=== PATIENT | female | born 1965 | race Caucasian/White ===

== ENCOUNTER → 2016-12-11 | Outpatient (CLI) | payer BC ==
[~2016-12-11] MED LIST: ALBUTEROL2.5 MG/3 M IH; ALLEGRA30 MG PO; AMITRIPTYLINE H50 MG PO; ATIVAN; ATIVAN0.5 MG PO; ATIVAN1 MG PO; AUGMENTIN875 MG PO; BACTRIM,SEPT1 TABLET PO; BENZONATATE200 MG PO; CALAN SR,COVER120 MG PO; CARISOPRODOL350 MG PO; CARTIA XT300 MG PO; CELEXA40 MG PO; CLARITIN10 MG PO; CONSTULOSE10 GM/15 M PO; DESYREL100 MG PO; FLOMAX0.4 MG PO; FLONASE16 G1 BOTH NARES; HCTZ; HYDROCHLOROTHIA25 MG PO; HYDROCODON-ACE1 EAC7 PO; HYDROXYZINE HCL50 MG PO; KADIAN10 MG PO; LEVAQUIN500 MG PO; LISINOPRIL; LORAZEPAM1 MG PO; LORZONE750 MG PO; NORCO 5/3251 TABLET PO; NUCYNTA ER150 MG PO; NUCYNTA ER200 MG PO; PERCOCET 5/31 TABLET PO; PRINIVIL20 MG PO; PROAIR HFA8.5 GM IH; PROTONIX40 MG PO; PROVENTIL,2.5 MG/0.5 IH; TRAMADOL HCL50 MG PO; ULTRAM ER100 MG PO; VICODIN,LORT1 TABLET PO; VOLTAREN50 M1 PO; VOLTAREN50 MG PO; ZANAFLEX2 M1 PO; ZOFRAN ODT8 MG PO; ZOLOFT100 MG PO; ZYRTEC10 M3 PO; [UNRECOGNIZED DRUG - OTHER]
== END | disposition home or self-care (01) ==
LOC: CDC 14:24
DX: M19.042 Primary osteoarthritis, left hand (principal); M79.645 Pain in left finger(s); R94.31 Abnormal electrocardiogram [ECG] [EKG]
CPT/HCPCS: 93000

== ENCOUNTER 2017-12-13 15:24 | Emergency (ER) | payer OTHER ==
[~2017-12-13] VITALS: Ht 154.9 cm; Wt 69.1 kg
[2017-12-13 16:05] LABS: HEMATOCRIT 40.6 % (36.0-46.0); HEMOGLOBIN 14.4 G/DL (11.9-15.5); MCH 28.9 PG (29.0-34.0); MCHC 35.5 G/DL (30.0-36.0); MCV 81.5 FL (83-99); PLATELET COUNT 274 K/uL (156-360); RBC DIS.WIDTH-CV 12.8 % (11.8-14.6); RBC DIS.WIDTH-SD 37.8 % (39-53); RED BLOOD COUNT 4.98 M/uL (3.80-5.20); WHITE BLOOD COUNT 9.2 K/uL (4.1-10.2)
[2017-12-13 16:16] LABS: CHLORIDE 103 mEq/L (99-109); POTASSIUM 4.7 mEq/L (3.7-5.4); SODIUM 140 mEq/L (136-147)
[2017-12-13 16:17] LABS: GLUCOSE 112 mg/dL (70-99)
[2017-12-13 16:21] LABS: CREATININE 0.9 mg/dL (0.6-1.3); GFR ESTIMATE (CALCULATED) > 59 mL/min/
[2017-12-13 16:22] LABS: UREA NITROGEN (BUN) 10 mg/dL (9-23)
[2017-12-13 16:28] LABS: TROP-I INTERPRETATION NEGATIVE; TROPONIN-I < 0.01 ng/mL (0.0-0.30)
[2017-12-13 19:37] LABS: APPEARANCE CLEAR ((CLEAR)); BILIRUBIN NEGATIVE; BLOOD NEGATIVE; GLUCOSE (STRIP) NEGATIVE; KETONES NEGATIVE; LEUKOCYTES NEGATIVE; NITRITE NEGATIVE; PROTEIN (STRIP) NEGATIVE; UROBILINOGEN 0.2 MG/DL (0.2-1.0)
[2017-12-13 19:58] LABS: COLOR YELLOW ((YELLOW))
[2017-12-13 20:10] LABS: TROP-I INTERPRETATION NEGATIVE; TROPONIN-I < 0.01 ng/mL (0.0-0.30)
[2017-12-13 20:42] VITALS: BP 126/89
== END 2017-12-13 20:51 | disposition home or self-care (01) ==
LOC: EME 15:24
PROVIDERS: Nurse Practitioner Family
DX: R07.89 Other chest pain (principal); I10 Essential (primary) hypertension; F41.9 Anxiety disorder, unspecified; J43.9 Emphysema, unspecified; F32.9 Major depressive disorder, single episode, unspecified; K21.9 Gastro-esophageal reflux disease without esophagitis; M79.7 Fibromyalgia; J45.909 Unspecified asthma, uncomplicated; Z88.8 Allergy status to other drugs, medicaments and biological substances; Z87.891 Personal history of nicotine dependence
CPT/HCPCS: 71046; 80048; 81003; 84484; 85027; 93005